=== PATIENT | female | born 1980 | race Caucasian/White ===

== ENCOUNTER 2016-10-02 09:46 | Observation (INO) | payer SELFPAY ==
[~2016-10-02] VITALS: Ht 149.9 cm; Wt 50.5 kg
[~2016-10-02 09:46] MED LIST: ASPIRIN325 MG PO; ATIVAN0.5 MG PO; CATAPRES0.3 MG PO; COREG25 MG PO; DILANTIN100 MG PO; FERROUS SULFAT325 MG PO; GLUCOTROL 5 MG T5 MG PO; HYDRALAZINE HC100 MG PO; HYDROCODON-ACE1 EAC7 PO; HYDROCODON-ACE1 EAC9 PO; ISOSORBIDE MONO60 M1 PO; LASIX40 MG; LASIX40 MG PO; LISINOPRIL5 MG PO; NORVASC10 MG PO; PHENERGAN25 M1 PO; PHOSLO667 MG PO; REGLAN10 MG PO; TUMS500 MG PO
[2016-10-02 10:30] LABS: BASOPHILS 0.3 % (0-2); HEMATOCRIT 29.3 % (36.0-48.0); HEMOGLOBIN 9.2 g/dL (12-16); IMMATURE GRANULOCYTES 0.9 % (0-5); LYMPHOCYTES 6.6 % (15-50); MCH 33.1 pg (26.0-34.0); MCHC 31.4 g/dL (31.0-37.0); MCV 105.4 fL (80.0-100.0); MEAN PLATELET VOLUME 9.4 fL (7.4-10.4); MONOCYTES 7.4 % (2-11); NEUTROPHILS 82.8 % (40-80); RBC 2.78 10x6/uL (4.00-5.40); WBC 14.5 10x3/uL (4.8-10.8)
[2016-10-02 10:34] LABS: PLATELET COUNT 358 10x3/uL (130-400)
[2016-10-02 11:05] LABS: ALBUMIN 3.4 g/dL (3.4-5.0); ALKALINE PHOSPHATASE 321 U/L (46-116); ALT (SGPT) 19 U/L (10-68); BILIRUBIN - TOTAL 0.32 mg/dL (0.2-1.3); CALC OSMOLALITY 280 mosm/kg (275-300); CALCIUM 9.5 mg/dL (8.5-10.1); CARBON DIOXIDE 20.2 mmol/L (21.0-32.0); CHLORIDE - SERUM 92 mmol/L (98-107); CHOL - HDL RATIO 3.3 ratio (2.3-4.1); CHOLESTEROL, TOTAL 190 mg/dL (0-200); CREATINE KINASE 89 UL (21-215); CREATININE - SERUM 7.9 mg/dL (0.6-1.3); GLUCOSE 95 mg/dL (74-106); HDL CHOLESTEROL 58 mg/dL (32-96); LDL CHOLESTEROL 91 mg/dL (0-100); LDL-HDL RATIO 1.6 ratio (1.5-3.5); PROTEIN - SERUM 8.6 g/dL (6.4-8.2); SODIUM 129 mmol/L (136-145); TRIGLYCERIDE 209 mg/dL (30-200); UREA NITROGEN 73 mg/dL (7-18); eGFR NON AFRICAN AMERICAN 6 mL/min (90-120)
[2016-10-02 11:07] LABS: TROPONIN-I < 0.017 ng/mL (0.000-0.060)
[2016-10-02 16:25] VITALS: BP 181/82; Ht 149.9 cm; Wt 50.5 kg
--- NOTE | 2016-10-02 21:28 | NUR ---
INITIAL NURSE ROUNDS @ 19:30 - PT AWAKE, ALERT, ORIENTED, REQUESTING PAIN MEDICATION, ROCKING BACK AND FORTH IN BED, CRYING UNCONTROLLABLY SHE IS RECEIVING DIALYIS AT BEDSIDE. I EXPLAINED TO PT THAT I WAS MAKING MY INITIAL ROUNDS, BUT THAT I WOULD BRING IT NOEMÍ. PTS MOTHER IS AT BEDSIDE. PTS MOTHER STATES SHE DOES NOT UNDERSTAND PALESTINIAN. I ENCOURAGED HER MOTHER TO LEARN HOW TO SPEAK PALESTINIAN SO THAT WE CAN COMMUNICATE BETTER FOR HER DAUGHTERS HEALTH CARE. PT HAS CALLED 5 TIMES FOR PAIN RX SINCE START OF SHIFT @ 19:00, AND STATES HER PAIN IS UNRELIEVED WITH THE PRN NORCO. I ASKED PT WHAT SHE USES AT HOME FOR PAIN, IN WHICH PT STATED INITIALLY THAT SHE DOES NOT TAKE ANYTHING FOR PAIN. PT BEGINS DEMONSTRATING INCREASED ANXIETY, AND I EXPLAINED TO PT THAT SHE NEEDS TO TAKE SLOW DEEP BREATHS AND TRY TO RELAX UNTIL THE NORCO STARTS WORKING. PT IS INCONSOLABLE AT THIS TIME. PT IS DEMANDING MORPHINE FOR PAIN, BECAUSE THAT IS WHAT SHE HAS ALWAYS HAD BEFORE. WHEN I EXPLAINED TO PT THAT HER ORDERED NORCO AND NOT MORPHINE, PT BEGAIN CRYING HARDER, AND HER MOTHER BECOMES INCREASINGLY AGITATED BECAUSE I WILL NOT GIVE HER ANYTHING ELSE FOR PAIN. PTS MOTHER THEN ASKS ME IN BROKEN PALESTINIAN IF SHE CAN GIVE HER TRAMADOL WHICH IS HER PAIN MEDICINE FROM HOME. I EXPLAINED THAT PT IS NOT TO TAKE ANY OTHER MEDICATIONS OTHER THAN WHAT THE PRESCRIBES AND ORDERS FOR HER WHILE SHE IS HERE. PT IS CLEARLY AGITATED, REFUSES TO BE CONSOLED, REFUSES TO TRY SLOW DEEP BREATHING. DURING MY ASSESSMENT, I WAS ASKING PT ABOUT HER DIALYSIS AND HOW OFTEN SHE DID DIALYZE VS HOW OFTEN SHE IS SUPPOSED TO DIALYZE. PT STATES SHE DOES ONCE PER WEEK, AND THE ISSUE IS TRANSPORTATION. PT STATES SHE WAS AT [facility] ON SUNDAY FOR DIALYSIS AND THEN TODAY, WHERE THEY REFUSED TO ADMIT HER. PT STATES WHILE CRYING UNCONTROLLABLY THAT SHE NEEDS MORPHINE, AND THAT NOTHING ELSE HELPS HER CHEST PAIN. I ASKED PT ABOUT HER CHEST PAIN WHEN SHE IS AT HOME, AND PT STATED SHE DOES NOT HAVE THIS PAIN AT HOME. I EXPLAINED TO PT AGAIN THAT SHE NEEDS TO CALM DOWN AND TAKE SLOW DEEP BREATHS AND ALLOW THE NORCO TO WORK. PT IS REFUSING TO COOPERATE AT THIS TIME, SO I LEFT HER IN STABLE CONDITION, TO ROUND ON MY OTHER PATIENTS. WILL CONTINUE TO MONITOR CLOSELY.
--- NOTE | 2016-10-02 22:24 | NUR ---
PT HAS CALLED AGAIN TO C/O CHEST PAIN THAT SHE STATES RADIATES TO HER BACK AND IS STILL CRYING, HYPERVENTALATING, AND INCONSOLABLE. PT DEMONSTRATES S/S OF A PANIC ATTACK. I HAVE SPOKEN WITH BROOKLYNN MITCHELL, BUSINESS INTERN FOR [employer] WHO STATED SHE CAN HAVE PRN ATIVAN FOR ANXIETY, BUT AT THIS TIME IS NOT WILLING TO CHANGE PAIN MEDICATION FROM NORCO TO MORPHINE. I HAVE ATTEMPTED TO DO TEACHING ABOUT AXIETY, WAYS TO COPE, EXCERSISES TO PRACTICE, BUT PT REFUSES TO COOPERATE. WILL CONTINUE TO MONITOR CLOSELY.
[2016-10-02 23:57] VITALS: BP 199/101; BP 202/94
--- NOTE | 2016-10-03 00:44 | NUR ---
PT CURRENTLY RESTING, EYES CLOSED, RESPIRATIONS EVEN AND UNLABORED. MOTHER AT BEDSIDE IN CHAIR. CONTINUE TO MONITOR CLOSELY.
[2016-10-03 04:01] VITALS: BP 196/103
--- NOTE | 2016-10-03 04:44 | NUR ---
PT IS JUST NOW STANDING AT HER DOOR, WHEN ASKED IF SHE NEEDED ANYTHING SHE DENIED ANYTHING. I ASKED HER IF HER PAIN WAS ANY BETTER AND IF THE ATIVAN HELPED. SHE STATED YES, AND THAT SHE DID NOT NEED ANYTHING RIGHT NOW. PT GOT BACK INTO BED AND CLOSED HER EYES. I TOLD PT THAT IF SHE WAS NEEDING ANOTHER PAIN PILL THAT SHE COULD HAVE ONE, BUT SHE DENIED. CONTINUE TO MONITOR CLOSELY.
[2016-10-03 08:24] VITALS: BP 135/84
[2016-10-03 10:35] LABS: BASOPHILS 0.4 % (0-2); EOSINOPHILS 1.4 % (0-7); HEMATOCRIT 33.6 % (36.0-48.0); HEMOGLOBIN 10.4 g/dL (12-16); IMMATURE GRANULOCYTES 0.8 % (0-5); LYMPHOCYTES 5.5 % (15-50); MCH 32.7 pg (26.0-34.0); MCV 105.7 fL (80.0-100.0); MEAN PLATELET VOLUME 9.3 fL (7.4-10.4); MONOCYTES 7.1 % (2-11); NEUTROPHILS 84.8 % (40-80); RBC 3.18 10x6/uL (4.00-5.40); RDW 17.2 % (11.5-14.5)
--- NOTE | 2016-10-03 10:37 | NUR ---
PROVIDED PT WITH PRN NORCO FOR PAIN ALONG WITH PRN ATIVAN FOR ANXIETY. PT WAS CALM WITH ME, SHE STATES THE PILL DOESNT WORK BUT SHE STILL WANTED IT BUT IS ACTUALLY WANTING IV PAIN MEDS. PT IS A&O BUT COMMUNICATION IS GUARDED R/T ETHNICITY. APPARENTLY OVERNIGHT PT THREW A FIT PER NIGHTSHIFT NURSE AND DEMANDED PAIN MEDS (MORPHINE) FOR CP HOWEVER PT DENIES ANY CHEST PAIN WITH ME AND STATES IT RLQ OF HER ABDOMEN PAIN. CL IN REACH, BED IN LOWEST, SIDE RAILS X2. WILL CTM.
[2016-10-03 10:38] LABS: PLATELET COUNT 436 10x3/uL (130-400); WBC 10.7 10x3/uL (4.8-10.8)
[2016-10-03 10:55] LABS: ANION GAP 19.8 mmol/L (8-16); CALCIUM 9.2 mg/dL (8.5-10.1); CARBON DIOXIDE 24.9 mmol/L (21.0-32.0); POTASSIUM - SERUM 5.7 mmol/L (3.5-5.1)
[2016-10-03 10:59] LABS: CREATININE - SERUM 5.5 mg/dL (0.6-1.3)
[2016-10-03 12:01] VITALS: BP 182/98
--- NOTE | 2016-10-03 15:28 | NUR ---
PT BEING BROUGHT DOWN TO DIALYSIS AT THIS TIME. C/O PAIN IN HER ABDOMEN STILL REQUESTING AND WAS PROVIDED WITH PRN SOLACO.
--- NOTE | 2016-10-03 18:18 | NUR ---
PT BACK FROM DIALYSIS. VSS. PT IS DIZZY AND ANXIOUS. PROVIDED PT WITH PRN LORAZEPAM. ASSISTED PT GETTING DRESSED. D/C R.WRIST PIV WITH CATHETER TIP FULLY INTACT. DISCHARGE TEACHING PROVIDED AND PAPERS SIGNED. PT READY TO DISCHARGE, WILL GET W/C AND TRANSPORT HER DOWN.
== END 2016-10-03 18:30 | disposition home or self-care (01) ==
LOC: D.ER 09:46 → D.M2 14:27 → OBSVTIME 14:27 → D.M2 14:27
PROVIDERS: Emergency Medicine Emergency Medical Services; ADMIT Internal Medicine
DX: E87.5 Hyperkalemia (principal); E11.22 Type 2 diabetes mellitus with diabetic chronic kidney disease; I12.0 Hypertensive chronic kidney disease with stage 5 chronic kidney disease or end stage renal disease; N18.6 End stage renal disease; Z99.2 Dependence on renal dialysis; Z91.15 Patient's noncompliance with renal dialysis; G89.29 Other chronic pain